=== PATIENT | female | born 1970 | race Caucasian/White ===

== ENCOUNTER 2017-08-23 12:07 | Emergency (ER) | payer BC ==
[~2017-08-23 12:07] MED LIST: AMO500 PO; AMOX-559 PO; CITA10SO7 PO; DOXY-179 PO; EMPA1TAB7; EXEN2PEN SQ; GLUCOPHAGE PO; HYDR-4228 PO; IBU200 PO; KET10 PO; LEV175 PO; LINA5TAB PO; LISI-368 PO; LOR7.5/325 PO; MET500 PO; METF-1 PO; METO-733 PO; METO25TA93 PO; NIT6.5 PO; NOR5/325 PO; OLM20 PO; ONDA4TAB PO; OXYC-865 PO; PANT40TA65 PO; PER PO; PRE10 PO; PROM25S PR; SUCR1TAB85 PO; TOBOD OP; TRADJENTA PO; [UNRECOGNIZED DRUG - CODE] PO
--- NOTE | 2017-08-23 12:19 | ER Report ---
History and Physical Time Seen By MD: 12:18 HPI/ROS CHIEF COMPLAINT: Ankle pain HISTORY OF PRESENT ILLNESS: This is a 47-year-old female who presents to the emergency department for right ankle pain patient states that about one week ago she was walking stepped on a pine cone her foot rolled medially and developed right ankle pain. Patient states that she's had continuous ankle pain since then. Patient also states she's had 2 previous ankle injuries. Patient also has lower tib-fib pain as well as right knee pain. The patient and her are also concerned about a DVT, the indication is very low at this point however they state that a relative there is just broke her ankle had a blood clot and " because of the clot". Patient denies chest pain or shortness of breath. No nausea or vomiting. No fevers, aches or chills. REVIEW OF SYSTEMS: Respiratory: No cough, no dyspnea. Cardiovascular: No chest pain, no palpitations. Gastrointestinal: No vomiting, no abdominal pain. Musculoskeletal: As above. Allergies: Coded Allergies: Sulfa (Sulfonamide Antibiotics) (Verified Allergy, Intermediate, RASH, ) Home Meds Reported Medications Empagliflozin/Metformin HCl (Synjardy 12.5-1,000 mg Tablet) 12.5 Mg-1,000 Mg Tablet 02/13/17 Levothyroxine Sodium (Levothyroxine Sodium) 300 Mcg Tablet, MCG PO DAILY 12/15/11 Past Medical/Surgical History The patient has a past medical and surgical history of CVA, asthma, arthritis, broken ankle, wears glasses, hard of hearing, diabetes, hypothyroidism, TIA, C- section, anxiety, depression, suicide attempt, cholecystectomy, tubal ligation, Reviewed Nurses Notes: Yes Hx Smoking: No Constitutional Vital Sign - Last 24 Hours 08/23/17 08/23/17 12:17 14:31 Temp 98.0 Pulse 73 79 Resp 16 B/P (MAP) 169/99 133/86 (102) Pulse Ox 95 94 O2 Delivery Room Air Physical Exam General Appearance: The patient is alert, has no immediate need for airway protection and no current signs of toxicity. Eyes: Pupils equal and round no injection. Respiratory: Chest is non tender, lungs are clear to auscultation. Cardiac: regular rate and rhythm. Gastrointestinal: Abdomen is soft and non tender, no masses, bowel sounds normal. Musculoskeletal: Neck: Neck is supple and non tender. Extremities right lateral malleolar pain with swelling. No medial malleolar pain. Distal tibia and fibular discomfort with palpation, no deformities, crepitus or step-offs. Right lateral and medial knee pain, no deformities, step- offs or crepitus noted. No swelling to the knee. No point tenderness to the calf. Skin: No rashes or lesions. DIFFERENTIAL DIAGNOSIS: After history and physical exam differential diagnosis was considered for contusion, ankle sprain, ankle fracture, DVT, tib-fib fracture and knee sprain. Medical Decision Making Data Points Laboratory Hematology Test 08/23/17 13:00 D-Dimer Quantitative (PE/DVT) 0.28 ug/ml (0-0.50) Chemistry Test 08/23/17 13:00 D-Dimer Quantitative (PE/DVT) 0.28 ug/ml (0-0.50) Coagulation Test 08/23/17 13:00 D-Dimer Quantitative (PE/DVT) 0.28 ug/ml EKG/Imaging Imaging Location: [facility] Patient: Dolores Chung : 1970 Visit[facility]Account:[id number] [facility] ANKLE 3 VIEW MIN RIGHT, KNEE 4 VIEW RIGHT, TIBIA FIBULA RIGHT History: Right leg pain. Ankle injury with swelling. Comparison study: None. Findings: Right knee: There is no fracture or dislocation involving the right knee. There is no joint effusion. Joint spaces are well preserved. Right tibia/fibula. There is no fracture involving the tibia or fibula. Right ankle: There is mild soft tissue swelling over the lateral malleolus but there is no finding of a fracture. The ankle mortise is intact. A well- corticated bony density inferior to the fibula is likely related to developmental variation or a prior injury. The base of the fifth metatarsal is intact. IMPRESSION: 1. Soft tissue swelling over the right lateral malleolus without findings of a fracture. 2. Normal images of the right knee and tibia and fibula. Report Dictated By: Timo Venegas MD at 08/23/2017 2:02 PM Report E-Signed By: Timo Venegas MD at 08/23/2017 2:05 PM WSN:GRADY Location: [facility] Patient: Dolores Chung : 1970 Visit/Account:[id number] Date of Sev: 08/23/2017 ANKLE 3 VIEW MIN RIGHT, KNEE 4 VIEW RIGHT, TIBIA FIBULA RIGHT History: Right leg pain. Ankle injury with swelling. Comparison study: None. Findings: Right knee: There is no fracture or dislocation involving the right knee. There is no joint effusion. Joint spaces are well preserved. Right tibia/fibula. There is no fracture involving the tibia or fibula. Right ankle: There is mild soft tissue swelling over the lateral malleolus but there is no finding of a fracture. The ankle mortise is intact. A well- corticated bony density inferior to the fibula is likely related to developmental variation or a prior injury. The base of the fifth metatarsal is intact. IMPRESSION: 1. Soft tissue swelling over the right lateral malleolus without findings of a fracture. 2. Normal images of the right knee and tibia and fibula. Report Dictated By: Timo Venegas MD at 08/23/2017 2:02 PM Report E-Signed By: Timo Venegas MD at 08/23/2017 2:05 PM N:AMICIVN Location: [facility] Patient: Dolores Chung : 1970 Visit/Account:[id number] Date of Sev: 08/23/2017 ANKLE 3 VIEW MIN RIGHT, KNEE 4 VIEW RIGHT, TIBIA FIBULA RIGHT History: Right leg pain. Ankle injury with swelling. Comparison study: None. Findings: Right knee: There is no fracture or dislocation involving the right knee. There is no joint effusion. Joint spaces are well preserved. Right tibia/fibula. There is no fracture involving the tibia or fibula. Right ankle: There is mild soft tissue swelling over the lateral malleolus but there is no finding of a fracture. The ankle mortise is intact. A well- corticated bony density inferior to the fibula is likely related to developmental variation or a prior injury. The base of the fifth metatarsal is intact. IMPRESSION: 1. Soft tissue swelling over the right lateral malleolus without findings of a fracture. 2. Normal images of the right knee and tibia and fibula. Report Dictated By: Timo Venegas MD at 08/23/2017 2:02 PM Report E-Signed By: Timo Venegas MD at 08/23/2017 2:05 PM WSN:GRADY ED Course/Re-evaluation ED Course The patient was met to room. A history and physical obtained. Potential diagnoses were considered. An x-ray of the right ankle, right tib-fib and right knee were obtained. No acute findings, no fractures of the right ankle, tib-fib or knee were identified. Given the patient's concern for a clot I did do a d- dimer which was negative. I did review the lab studies and x-ray results with the patient. Patient was placed in a walking boot for comfort. Patient has crutches at home. She was instructed to keep the bouton for comfort, follow up with [facility] for reevaluation if no improvement. Patient was instructed to take ibuprofen or Tylenol as needed. Keep the foot elevated and apply ice as needed. Patient expressed understanding and was discharged home. 08/23/2017 1:51:06 pm I did tell the patient and her that the d-dimer was negative, therefore I do not feel an ultrasound is warranted at this time. Patient and the are in agreement. I also told him that my preliminary read on the knee is negative as well as the tib-fib, the ankle was questionable. Waiting for the official read from radiology. Decision to Disposition Date: Aug 23, 2017 Decision to Disposition Time: 14:21 Depart Departure Latest Vital Signs Vital Signs Date Time Temp Pulse Resp B/P (MAP) Pulse Ox O2 Delivery O2 Flow Rate FiO2 08/23/17 14:31 79 133/86 (102) 94 08/23/17 12:17 98.0 16 Room Air Impression: Primary Impression: Right ankle sprain Additional Impression: Right knee pain Condition: Improved Disposition: HOME OR SELF-CARE Referrals: MARTINEZ MASON MD (PCP) [facility] Patient Instructions: Ankle Sprain (ED), Knee Pain (ED) Additional Instructions: Drink plenty of fluids. Get plenty of rest. Wear the boot for comfort. Follow up with Ortho in one week if no improvement. Take Tylenol as needed for pain. Return to the ED for any other concerns or worsening symptoms. Problem Qualifiers Primary Impression: Right ankle sprain Encounter type: initial encounter Involved ligament of ankle: unspecified ligament Qualified Codes: S93.401A - Sprain of unspecified ligament of right ankle, initial encounter Additional Impression: Right knee pain Chronicity: acute Qualified Codes: M25.561 - Pain in right knee MONY HERNANDES [employer] Aug 23, 2017 12:19
--- NOTE | 2017-08-23 14:08 | RADIOLOGY IMAGING REPORT ---
FACILITY: [facility] [place] PATIENT NAME: Dolores Chung : 1970 MR: [id number] V: [id number] EXAM DATE: ORDERING PHYSICIAN: MONY HERNANDES TECHNOLOGIST: Location: [facility] Patient: Dolores Chung : 1970 Visit/Account:[id number] Date of Sevice: 08/23/2017 ANKLE 3 VIEW MIN RIGHT, KNEE 4 VIEW RIGHT, TIBIA FIBULA RIGHT History: Right leg pain. Ankle injury with swelling. Comparison study: None. Findings: Right knee: There is no fracture or dislocation involving the right knee. There is no london nt effusion. Joint spaces are well preserved. Right tibia/fibula. There is no fracture involving the tibia or fibula. Right ankle: There is mild soft tissue swelling over the lateral malleolus but there is no finding of a fracture. The ankle mortise is intact. A well-corticated bony density inferior to the fibula is likely related to developmental variation or a prior injury. The base of the fifth metatarsal is int act. IMPRESSION: 1. Soft tissue swelling over the right lateral malleolus without findings of a fracture. 2. Normal images of the right knee and tibia and fibula. Report Dictated By: Timo Venegas MD at 08/23/2017 2:02 PM Report E-Signed By: Timo Venegas MD at 08/23/2017 2:05 PM WSN:AMICIVN
--- NOTE | 2017-08-23 14:09 | RADIOLOGY IMAGING REPORT ---
FACILITY: [facility] [place] PATIENT NAME: Dolores Chung : 1970 MR: [id number] V: [id number] EXAM DATE: ORDERING PHYSICIAN: MONY HERNANDES TECHNOLOGIST: Location: [facility] Patient: Dolores Chung : 1970 Visit/Account:[id number] Date of Sevice: 08/23/2017 ANKLE 3 VIEW MIN RIGHT, KNEE 4 VIEW RIGHT, TIBIA FIBULA RIGHT History: Right leg pain. Ankle injury with swelling. Comparison study: None. Findings: Right knee: There is no fracture or dislocation involving the right knee. There is no london nt effusion. Joint spaces are well preserved. Right tibia/fibula. There is no fracture involving the tibia or fibula. Right ankle: There is mild soft tissue swelling over the lateral malleolus but there is no finding of a fracture. The ankle mortise is intact. A well-corticated bony density inferior to the fibula is likely related to developmental variation or a prior injury. The base of the fifth metatarsal is int act. IMPRESSION: 1. Soft tissue swelling over the right lateral malleolus without findings of a fracture. 2. Normal images of the right knee and tibia and fibula. Report Dictated By: Timo Venegas MD at 08/23/2017 2:02 PM Report E-Signed By: Timo Venegas MD at 08/23/2017 2:05 PM WSN:AMICIVN
--- NOTE | 2017-08-23 14:09 | RADIOLOGY IMAGING REPORT ---
FACILITY: [facility] PATIENT NAME: Dolores Chung : 1970 MR: [id number] V: [id number] EXAM DATE: ORDERING PHYSICIAN: MONY HERNANDES TECHNOLOGIST: Location: [facility] [place] Patient: Dolores Chung : 1970 Visit/Account:[id number] Date of Sevice: 08/23/2017 ANKLE 3 VIEW MIN RIGHT, KNEE 4 VIEW RIGHT, TIBIA FIBULA RIGHT History: Right leg pain. Ankle injury with swelling. Comparison study: None. Findings: Right knee: There is no fracture or dislocation involving the right knee. There is no london nt effusion. Joint spaces are well preserved. Right tibia/fibula. There is no fracture involving the tibia or fibula. Right ankle: There is mild soft tissue swelling over the lateral malleolus but there is no finding of a fracture. The ankle mortise is intact. A well-corticated bony density inferior to the fibula is likely related to developmental variation or a prior injury. The base of the fifth metatarsal is int act. IMPRESSION: 1. Soft tissue swelling over the right lateral malleolus without findings of a fracture. 2. Normal images of the right knee and tibia and fibula. Report Dictated By: Timo Venegas MD at 08/23/2017 2:02 PM Report E-Signed By: Timo Venegas MD at 08/23/2017 2:05 PM WSN:AMICIVN
[2017-08-23 14:31] VITALS: BP 133/86
== END 2017-08-23 14:34 | disposition home or self-care (01) ==
LOC: ER 12:15
DX: S93.401A Sprain of unspecified ligament of right ankle, initial encounter (principal); M25.561 Pain in right knee
CPT/HCPCS: 36415; 73564; 85379; 99284

== ENCOUNTER → 2017-12-11 | Outpatient (CLI) | payer BC ==
--- NOTE | 2017-12-11 10:06 | RADIOLOGY IMAGING REPORT ---
FACILITY: [facility] [place] PATIENT NAME: Dolores Chung : 1970 MR: [id number] V: [id number] EXAM DATE: ORDERING PHYSICIAN: EVANGELISTA OLIVARES TECHNOLOGIST: Location: [facility] Patient: Dolores Chung : 1970 Visit/Account:[id number] Date of Sevice: 12/11/2017 TRANSVAGINAL NON-OB HISTORY: Abnormal vaginal bleeding TECHNIQUE: Transvaginal ultrasound pelvis. COMPARISON: CT abdomen and pelvis February 13, 2017 FINDINGS: Uterus: Retroverted; 7.6 cm length x 5.3 cm AP x 6.6 cm transverse. Myometrium: Mildly heterogeneous. There is a 1.6 x 1.8 x 1.6 cm slightly heterogeneous mass projecti ng from the posterior right side of the uterus likely representing a fibroid. Endometrium: Unremarkable; double thickness 5.9 mm. Cervix: Nabothian cysts. Ovaries: Right - 2.7 x 1.7 x 2 cm Left - 4.3 x 3.7 x 3.4 cm. There is a 3.3 x 3.4 x 3.6 cm heterogeneous complex mass in the left ovary possibly representing a he morrhagic cyst or endometrioma although other ovarian masses are not excluded. Blood flow is documented in each ovary by duplex Doppler ultrasound. Adnexa: Grossly unremarkable. Free pelvic fluid: None. IMPRESSION: There is a 3.3 x 3.4 x 3.6 and meter heterogeneous complex mass left ovary possibly represent hemorrh agic cyst or endometrioma although other ovarian masses are not excluded. Short-term interval follow -up recommended 1.8 cm fibroid posterior right-sided the uterus Nabothian cysts Report Dictated By: Kya Guevara MD at 12/11/2017 9:58 AM Report E-Signed By: Kya Guevara MD at 12/11/2017 10:02 AM WSN:GRADY
== END ==
LOC: US 01:32
PROVIDERS: ATTEND Physician Assistant Medical
DX: N88.8 Other specified noninflammatory disorders of cervix uteri (principal); D25.9 Leiomyoma of uterus, unspecified; N83.8 Other noninflammatory disorders of ovary, fallopian tube and broad ligament
CPT/HCPCS: 76830

== ENCOUNTER 2018-01-29 01:15 | Day surgery (SDC) | payer BC ==
[~2018-01-29] VITALS: Ht 157.5 cm; Wt 92.1 kg
[~2018-01-29 01:15] MED LIST changes: -EMPA1TAB7; +EMPA1TAB7 PO; +FERR325T24 PO; +LEVO200T50 PO; +POTA-23 PO
[2018-01-29] MEDS ORDERED: LIDOCAINE MPF 1% 5 ML VIAL ONE (10:56)
[2018-01-29] MEDS ORDERED: DEXAMETHASONE SOD 4 MG/ML VIAL ONE (10:56)
[2018-01-29] MEDS ORDERED: ONDANSETRON 4 MG/2 ML VIAL ONE (10:56)
[2018-01-29] MEDS ORDERED: METOCLOPRAMIDE 10 MG/2 ML SDV ONE (10:56)
[2018-01-29] MEDS ORDERED: PROPOFOL EMUL(*) 10MG/ML 20 ML 20 ML ONE (10:56)
[2018-01-29] MEDS ORDERED: fentaNYL CITR 100 MCG/2 ML AMP ONE ×3 (11:50→14:53)
[2018-01-29 12:20] LABS: PLATELET COUNT, AUTOMATED 327 K/uL (150-450)
[2018-01-29 12:30] VITALS: BP 151/100
[2018-01-29] MEDS ORDERED: ceFAZolin(*) 2GM/D5W 50ML 50 ML IVPB ONE (13:15)
[2018-01-29] MEDS ORDERED: MIDAZOLAM 2 MG/2 ML VIAL IVP PRN (13:15)
[2018-01-29] MEDS ORDERED: FAMOTIDINE 20 MG TAB PO ONE (13:15)
[2018-01-29] MEDS ORDERED: NORMOSOL R SOLN(*) 1000 ML BAG 1,000 ML IV PRN (13:15)
[2018-01-29] MEDS ORDERED: LIDOCAINE/SOD BICARB 8.4% SYR ID ONE (13:15)
[2018-01-29] MEDS ORDERED: KETOROLAC 30 MG/ML VIAL ONE (13:49)
--- NOTE | 2018-01-29 14:14 | Post Operative Note ---
Operative Note - CERTIFIED TUMOR REGISTRAR Operative Day Date: Jan 29, 2018 Time: 14:13 Physicians Surgeon: Claudette Anesthesia: General, [place] Diagnosis Pre-Op Diagnosis: Heavy and irregular bleeding Post-Op Diagnosis: Same Procedure Procedure(s): Dx hscope NovaSure ablation Specimen Removed:(Maybe N/A): None Fluids Fluids: UOP: 50cc Estimated Blood Loss: Minimal CINDY VILLAREAL MD Jan 29, 2018 14:14
[2018-01-29] MEDS ORDERED: LR(*) 1000 ML BAG 1,000 ML IV ONE (14:18)
[2018-01-29] MEDS ORDERED: METOCLOPRAMIDE 10 MG/2 ML SDV IVP PRN (14:20)
[2018-01-29] MEDS ORDERED: LOR5/325 PO (14:21)
[2018-01-29] MEDS ORDERED: IBUP800T37 PO (14:21)
[2018-01-29] MEDS ORDERED: APAP/HYDROCODONE 325/5 TAB ONE (14:53)
--- NOTE | 2018-01-29 14:57 | OPERATIVE REPORT 1 ---
EVENT DATE: January 29, 2018 SURGEON: Jigna Wilknis MD ANESTHESIOLOGIST: Blu Bone MD ANESTHESIA: General. PREOPERATIVE DIAGNOSIS Heavy and irregular bleeding. POSTOPERATIVE DIAGNOSIS Heavy and irregular bleeding. PROCEDURES PERFORMED 1. Diagnostic hysteroscopy. 2. NovaSure endometrial ablation. SPECIMENS REMOVED None. INTRAVENOUS FLUIDS See anesthesia record. URINE OUTPUT 50 mL ESTIMATED BLOOD LOSS Minimal. HYSTEROSCOPIC FLUIDS Total used: 750 mL with 75 mL deficit. NOVASURE SETTINGS Cavity length 5.5 cm, width 4.7 cm, power 142 farrar, time 62 seconds. INDICATIONS FOR PROCEDURE This patient is a 47-year-old G2, P2, who presented to clinic with heavy and irregular menstrual bleeding. 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 She had a benign endometrial biopsy. She was counseled on multiple options and elected to proceed with the above-said procedure for a minimally invasive option. Please see History and Physical for full details. DESCRIPTION OF PROCEDURE The patient was properly identified and taken to the operating room. She was placed under general anesthesia and placed in the dorsal lithotomy position. She was prepped and draped in the usual fashion for a vaginal procedure. A speculum was placed to visualize the cervix, which was multiparous and without lesion. The anterior lip of the cervix was grasped with an Allis clamp. Gentle traction was applied, and the cervix was serially dilated to 6 mm using Hegar dilators without difficulty. The uterus was known to be retroverted. The hysteroscope was then assembled and primed. The hysteroscope was introduced under direct visualization, confirming a normal-appearing endometrial cavity and bilateral tubal ostia. The hysteroscope was then removed, and the NovaSure endometrial ablation device was assembled. The cavity length was measured to be 5.5 cm. This was placed on the setting for the NovaSure. The device was then introduced into the uterus, and the array was deployed. The maximum width was 4.7 cm. The cervical collar was then advanced, and the cavity assessment was performed and passed. The radiofrequency ablation was then initiated, and a total of 62 seconds was utilized for the ablation time. The array was then retracted, and the entire NovaSure device was removed. The array did appear to have adequate burn throughout the entire array. The hysteroscope was then reintroduced into the endometrial cavity, and an adequate burn was observed. At this time, the hysteroscope was removed, as was the Allis clamp and speculum. The bladder was drained of 50 mL of clear yellow urine. The patient tolerated this procedure well and recovered in the Post-Anesthesia Care Unit. All sponge counts were correct at the end of this procedure. MAX
[2018-01-29 15:20] VITALS: BP 152/108
[2018-01-29 15:30] VITALS: BP 153/104
[2018-01-29 15:45] VITALS: BP 155/92
[2018-01-29 16:00] VITALS: BP 156/96
[2018-01-29 16:04] VITALS: BP 141/95
[2018-01-29] MEDS ORDERED: IBUPROFEN 800 MG TAB PO SCH (20:00)
== END 2018-01-29 15:20 | disposition home or self-care (01) ==
LOC: OR 01:15
PROVIDERS: ATTEND Obstetrics & Gynecology
DX: N92.6 Irregular menstruation, unspecified (principal); D25.1 Intramural leiomyoma of uterus
CPT/HCPCS: 36415; 58563; 84443; 84703; 85025; J1100; J1885; J2001; J2250; J2405; J2704; J2765; J3010; 82310; 82374; 82435; 82565; 82947; 84132; 84295; 84520; J0690

== ENCOUNTER → 2018-01-31 | Outpatient (CLI) | payer BC ==
[~2018-01-31] MED LIST changes: +IBUP800T37 PO; +LOR5/325 PO
--- NOTE | 2018-02-03 10:44 | RADIOLOGY IMAGING REPORT ---
FACILITY: PATIENT NAME: NATHANAEL LONDON : [id number] MR: [id number] V: [id number] EXAM DATE: ORDERING PHYSICIAN: CINDY VILLAREAL TECHNOLOGIST: Cee Snyder PROCEDURE:BILATERAL DIGITAL SCREENING MAMMOGRAM WITH CAD ASSISTED INTERPRETATION & 3D TOMOSYNTHESIS COMPARISON:None this is the patient's baseline mammogram. INDICATIONS:screening FINDINGS: There are scattered fibroglandular densities in both breasts. There is no evidence of malignant appearing mass, malignant appearing calcifications or other secondary sign of malignancy in either breast. DIAGNOSTIC CATEGORY 1--NEGATIVE. RECOMMENDATIONS: ROUTINE MAMMOGRAM AND CLINICAL EVALUATION. IMPRESSION: BIRADS 1: Negative. No significant abnormality is seen. Dictated by: Kya Guevara M.D. on 01/31/2018 at 14:39 Transcribed by: RAUL on 01/31/2018 at 14:48 Approved by: Kya Guevara M.D. on 02/03/2018 at 10:43 [facility]
== END ==
LOC: MAMO 01-10 03:59
PROVIDERS: ATTEND Obstetrics & Gynecology
DX: Z12.31 Encounter for screening mammogram for malignant neoplasm of breast (principal)
CPT/HCPCS: 77063; 77067

== ENCOUNTER 2018-05-21 07:34 | Emergency (ER) | payer BC ==
[~2018-05-21 07:34] MED LIST changes: +AMOX875T60 PO
--- NOTE | 2018-05-21 07:55 | ER Report ---
History and Physical Time Seen By MD: 07:45 Hx. of Stated Complaint: PATIENT REPORTS FEELING DIZZY. THIS STARTED OVERNIGHT. NO HX OF VERTIGO HPI/ROS CHIEF COMPLAINT: Viral type symptoms HISTORY OF PRESENT ILLNESS: Patient is a 40 center female comes emergency Department today with complaint that she's had a nonproductive cough fever generalized fatigue malaise and weakness just doesn't feel well subjective fevers at home started last night took some NyQuil for little better get some sleep This morning he still didn't feel well so she came to the emergency room. Cough is nonproductive no abdominal pain no chest pain nausea without vomiting no urinary complaints 8 last night no additional complaints noted. REVIEW OF SYSTEMS: Respiratory: Cough nonproductive no shortness of breath Cardiovascular: No chest pain, no palpitations. Gastrointestinal: No vomiting, no abdominal pain. Musculoskeletal: No back pain. Remainder of the 14 system rev: Yes Allergies: Coded Allergies: Sulfa (Sulfonamide Antibiotics) (Verified Allergy, Intermediate, RASH, 11/04/16) Home Meds Active Scripts Amoxicillin (AMOXICILLIN) 875 Mg Tablet, 1 TAB PO BID, #20 TAB 0 Refills Prov:CINDY VILLAREAL MD 02/20/18 Hydrocodone Bit/Acetaminophen (HYDROCODON-ACETAMINOPHEN 5-325) 1 Each Tablet, 1 EACH PO Q4-6H PRN for pain, #15 TAB 0 Refills Prov:CINDY VILLAREAL MD 01/29/18 Ibuprofen (IBUPROFEN) 800 Mg Tablet, 1 TAB PO Q8H PRN for pain, #30 TAB 0 Refills TAKE WITH FOOD EVERY 8 HOURS Prov:CINDY VILLAREAL MD 01/29/18 Reported Medications Potassium Chloride (KLOR-CON 10) 10 Meq Tablet.er, 10 MEQ PO QDAY 01/23/18 Ferrous Sulfate (IRON) 325 Mg Tablet, 325 MG PO 01/23/18 Levothyroxine Sodium (LEVOTHYROXINE SODIUM) 200 Mcg Tablet, 1 TAB PO QDAY 12/13/17 Empagliflozin/Metformin HCl (Synjardy 12.5-1,000 mg Tablet) 12.5 Mg-1,000 Mg Tablet, 1 TAB PO QDAY 02/13/17 Reviewed Nurses Notes: Yes Old Medical Records Reviewed: Yes Hx Smoking: Yes Smoking Status: Former Smoker Exposure to Second Hand Smoke?: Yes Hx Substance Use Disorder: No Hx Alcohol Use: No Constitutional Vital Sign - Last 24 Hours 4/3/19 07:37 Temp 100.6 Pulse 116 Resp 20 B/P (MAP) 150/100 Pulse Ox 91 O2 Delivery Room Air Physical Exam General Appearance: The patient is alert, has no immediate need for airway protection and no current signs of toxicity. [ ] Eyes: Pupils equal and round no injection. Respiratory: Chest is non tender, lungs are clear to auscultation. Cardiac: regular rate and rhythm [ ] Gastrointestinal: Abdomen is soft and non tender, no masses, bowel sounds normal. Musculoskeletal: Neck: Neck is supple and non tender. Extremities have full range of motion and are non tender. Skin: No rashes or lesions. [ ] DIFFERENTIAL DIAGNOSIS: After history and physical exam differential diagnosis was considered for influenza viral upper respiratory viral syndrome viral infection pneumonia bronchitis Medical Decision Making Data Points Laboratory Hematology Test 05/21/18 07:46 Influenza Virus Type A (PCR) Positive (NEGATIVE) Influenza Virus Type B (PCR) Negative (NEGATIVE) Chemistry Test 05/21/18 07:46 Influenza Virus Type A (PCR) Positive (NEGATIVE) Influenza Virus Type B (PCR) Negative (NEGATIVE) ED Course/Re-evaluation ED Course ED course medical decision making 47-year-old female with vague nonspecific influenza type symptoms influenza A positive we'll advise her to take [id number] medications rest follow-up appropriately with primary care Decision to Disposition Date: May 21, 2018 Decision to Disposition Time: 08:27 Depart Departure Latest Vital Signs Vital Signs Date Time Temp Pulse Resp B/P (MAP) Pulse Ox O2 Delivery O2 Flow Rate FiO2 05/21/18 07:37 100.6 116 20 150/100 91 Room Air Impression: Primary Impression: Influenza A Condition: Improved Disposition: HOME OR SELF-CARE Referrals: CINDY VILLAREAL MD (PCP) 5 Days Patient Instructions: Influenza (ED) SCOTT JAMES MD May 21, 2018 07:55
[2018-05-21 08:30] VITALS: BP 139/87
== END 2018-05-21 08:40 | disposition home or self-care (01) ==
LOC: ER 07:38
DX: J09.X2 Influenza due to identified novel influenza A virus with other respiratory manifestations (principal)
CPT/HCPCS: 87502; 99282

== ENCOUNTER 2018-09-13 20:49 | Emergency (ER) | payer OTHER, BC ==
--- NOTE | 2018-09-13 20:51 | ER Report ---
History and Physical Allergies: Coded Allergies: Sulfa (Sulfonamide Antibiotics) (Verified Allergy, Intermediate, RASH, 09/13/18) Home Meds Reported Medications Semaglutide (Ozempic) 1 Mg/0.75 Ml (2 Mg/1.5 Ml) Pen.injctr, 1 MG IM QWEEK 09/13/18 Levothyroxine Sodium (LEVOTHYROXINE SODIUM) 200 Mcg Tablet, 1 TAB PO QDAY 12/13/17 Empagliflozin/Metformin HCl (Synjardy 12.5-1,000 mg Tablet) 12.5 Mg-1,000 Mg T ablet, 1 TAB PO QDAY 02/13/17 Discontinued Reported Medications Potassium Chloride (KLOR-CON 10) 10 Meq Tablet.er, 10 MEQ PO QDAY 01/23/18 Ferrous Sulfate (IRON) 325 Mg Tablet, 325 MG PO 01/23/18 Discontinued Scripts Amoxicillin (AMOXICILLIN) 875 Mg Tablet, 1 TAB PO BID, #20 TAB 0 Refills Prov:CINDY VILLAREAL MD 02/20/18 Hydrocodone Bit/Acetaminophen (HYDROCODON-ACETAMINOPHEN 5-325) 1 Each Tablet, 1 EACH PO Q4-6H PRN for pain, #15 TAB 0 Refills Prov:CINDY VILLAREAL MD 01/29/18 Ibuprofen (IBUPROFEN) 800 Mg Tablet, 1 TAB PO Q8H PRN for pain, #30 TAB 0 Refills TAKE WITH FOOD EVERY 8 HOURS Prov:CINDY VILLAREAL MD 01/29/18 Reviewed Nurses Notes: Yes Old Medical Records Reviewed: Yes Hx Smoking: Yes Smoking Status: Former Smoker Exposure to Second Hand Smoke?: Yes Hx Substance Use Disorder: No Hx Alcohol Use: No Constitutional Vital Sign - Last 24 Hours 09/13/18 20:57 Temp 98.4 Pulse 70 Resp 14 B/P (MAP) 147/106 Pulse Ox 95 O2 Delivery Room Air Depart Departure Latest Vital Signs Vital Signs Date Time Temp Pulse Resp B/P (MAP) Pulse Ox O2 Delivery O2 Flow Rate FiO2 09/13/18 20:57 98.4 70 14 147/106 95 Room Air Condition: Stable Disposition: HOME OR SELF-CARE Referrals: MARTINEZ MASON MD (PCP) MARIO SPRING DO Sep 13, 2018 20:51
[2018-09-13] MEDS ORDERED: SEMA1PEN IM (21:03)
--- NOTE | 2018-09-13 21:09 | ER Report ---
History and Physical Time Seen By MD: 21:06 Hx. of Stated Complaint: PT REPORTS ROLLING RIGHT ANKLE AND FALLING TO RIGHT SIDE. PT COMPLAINT OF PAIN IN RIGHT ANKLE, KNEE, AND WRIST. HPI/ROS CHIEF COMPLAINT: Fall HISTORY OF PRESENT ILLNESS: This is a 48-year-old female who presents to the emergency department for a fall. Patient states she was at work around 6:00 this evening when she fell off a step stool, she states her right foot rolled medially, causing pain to the right lateral malleolus, she also fell down landing with her right hand outstretched, causing pain to the right wrist. She denies hitting her head, no loss of consciousness, no other injuries. No chest pain or shortness breath. REVIEW OF SYSTEMS: Respiratory: No cough, no dyspnea. Cardiovascular: No chest pain, no palpitations. Gastrointestinal: No vomiting, no abdominal pain. Musculoskeletal: As above. Allergies: Coded Allergies: Sulfa (Sulfonamide Antibiotics) (Verified Allergy, Intermediate, RASH, 09/13/18) Home Meds Reported Medications Semaglutide (Ozempic) 1 Mg/0.75 Ml (2 Mg/1.5 Ml) Pen.injctr, 1 MG IM QWEEK 09/13/18 Levothyroxine Sodium (LEVOTHYROXINE SODIUM) 200 Mcg Tablet, 1 TAB PO QDAY 12/13/17 Empagliflozin/Metformin HCl (Synjardy 12.5-1,000 mg Tablet) 12.5 Mg-1,000 Mg Tablet, 1 TAB PO QDAY 02/13/17 Discontinued Reported Medications Potassium Chloride (KLOR-CON 10) 10 Meq Tablet.er, 10 MEQ PO QDAY 01/23/18 Ferrous Sulfate (IRON) 325 Mg Tablet, 325 MG PO 01/23/18 Discontinued Scripts Amoxicillin (AMOXICILLIN) 875 Mg Tablet, 1 TAB PO BID, #20 TAB 0 Refills Prov:CINDY VILLAREAL MD 02/20/18 Hydrocodone Bit/Acetaminophen (HYDROCODON-ACETAMINOPHEN 5-325) 1 Each Tablet, 1 EACH PO Q4-6H PRN for pain, #15 TAB 0 Refills Prov:CINDY VILLAREAL MD 01/29/18 Ibuprofen (IBUPROFEN) 800 Mg Tablet, 1 TAB PO Q8H PRN for pain, #30 TAB 0 Refills TAKE WITH FOOD EVERY 8 HOURS Prov:CINDY VILLAREAL MD 01/29/18 Past Medical/Surgical History The patient has a past medical and surgical history of TIA, CVA, possible heart murmur, asthma as a child, broken right ankle as a child, wears glasses, "macular edema", hard of hearing, type II diabetes, hypothyroidism, eczema C- section, cholecystectomy, depression, remote history of suicide attempt, cervical ablation, tubal ligation, tonsillectomy. Reviewed Nurses Notes: Yes Hx Smoking: Yes Smoking Status: Former Smoker Exposure to Second Hand Smoke?: Yes Hx Substance Use Disorder: No Hx Alcohol Use: No Constitutional Vital Sign - Last 24 Hours 09/13/18 09/13/18 09/13/18 09/13/18 20:55 20:57 21:00 21:04 Temp 98.4 Pulse 70 72 Resp 14 B/P (MAP) 147/106 (120) 147/106 163/106 (125) Pulse Ox 95 94 O2 Delivery Room Air 09/13/18 09/13/18 09/13/18 09/13/18 21:19 21:30 21:34 21:49 Pulse 68 67 70 B/P (MAP) 147/107 (120) Pulse Ox 94 96 94 09/13/18 09/13/18 09/13/18 09/13/18 22:00 22:04 22:30 22:34 Pulse 58 65 B/P (MAP) 142/90 (107) 149/93 (111) Pulse Ox 92 93 09/13/18 09/13/18 22:45 23:00 Pulse 73 67 B/P (MAP) 136/99 (111) Pulse Ox 93 92 Physical Exam General Appearance: The patient is alert, has no immediate need for airway protection and no current signs of toxicity. Eyes: Pupils equal and round no injection. Respiratory: Chest is non tender, lungs are clear to auscultation. Cardiac: regular rate and rhythm. Gastrointestinal: Abdomen is soft and non tender, no masses, bowel sounds normal. Musculoskeletal: Neck: Neck is supple and non tender. Extremities pain to the right lateral malleolus with pain, small amount of swelling identified, no crepitus. Small amount of swelling to the arch of the foot, no crepitus or deformities.Examination of the Right hand reveals no acute deformity. The patient is able to give a thumbs up sign, is able to make an okay sign, and is able to AB duct the fingers. Sensation is intact over the dorsal 1st web space, the volar aspect of the 2nd finger, and the volar aspect of the 5th finger. Capillary refill is brisk. There is pain over the lunate. Skin: No rashes or lesions. DIFFERENTIAL DIAGNOSIS: After history and physical exam differential diagnosis was considered for contusion, fracture, subluxation, sprain. Medical Decision Making EKG/Imaging Imaging PATIENT NAME: Dolores Chung : 1970 MR: [id number] V: [id number] EXAM DATE: ORDERING PHYSICIAN: MISHA HERNANDES TECHNOLOGIST: Location: [facility] Patient: Dolores Chung : 1970 Visit/Account:[id number] Date of Sevice: 09/13/2018 ANKLE 3 VIEW MIN RIGHT XR WRIST 3 OR MORE VIEWS RT Indication: Trauma. Right ankle and right wrist pain. Comparison: Right ankle radiographs dated 08/23/2017. Right wrist radiographs dated 07/22/2006. Findings: Right ankle: 3 views. No evidence of acute fracture, dislocation, or radiopaque foreign body. Small enthesophytes at the insertion of the Achilles tendon. Stable chronic posttraumatic changes adjacent to the medial and lateral malleoli. Stable chronic deformity of the superior aspect of the navicular bone. Otherwise normal mineralization, joint spaces, and alignment. Right wrist: 3 views. No evidence of acute fracture, dislocation, or radiopaque foreign body. Stable small bone islands in the first and fourth metacarpal heads. Otherwise normal mineralization, and joint spaces, and alignment. Impression: 1. No acute osseous abnormality of the right ankle or right wrist. 2. Stable chronic findings compared to prior exams. Report Dictated By: Misha Chow MD at 09/13/2018 10:33 PM Report E-Signed By: Misha Chow MD at 09/13/2018 10:38 PM WSN:[id number] PATIENT NAME: Dolores Chung : 1970 MR: [id number] V: [id number] EXAM DATE: [id number] ORDERING PHYSICIAN: MISHA HERNANDES TECHNOLOGIST: Location: [facility] Patient: Dolores Chung : 1970 Visit/Account:[id number] Date of : 09/13/2018 ANKLE 3 VIEW MIN RIGHT XR WRIST 3 OR MORE VIEWS RT Indication: Trauma. Right ankle and right wrist pain. Comparison: Right ankle radiographs dated 08/23/2017. Right wrist radiographs dated 07/22/2006. Findings: Right ankle: 3 views. No evidence of acute fracture, dislocation, or radiopaque foreign body. Small enthesophytes at the insertion of the Achilles tendon. Stable chronic posttraumatic changes adjacent to the medial and lateral malleoli. Stable chronic deformity of the superior aspect of the navicular bone. Otherwise normal mineralization, joint spaces, and alignment. Right wrist: 3 views. No evidence of acute fracture, dislocation, or radiopaque foreign body. Stable small bone islands in the first and fourth metacarpal heads. Otherwise normal mineralization, and joint spaces, and alignment. Impression: 1. No acute osseous abnormality of the right ankle or right wrist. 2. Stable chronic findings compared to prior exams. Report Dictated By: Misha Chow MD at 09/13/2018 10:33 PM Report E-Signed By: Misha Chow MD at 09/13/2018 10:38 PM WSN:[id number] ED Course/Re-evaluation ED Course The patient was admitted to a room. A history and physical obtained. Differential diagnoses were considered. An x-ray of the right wrist and right ankle were obtained and negative for any acute osseous have the mallet. I did review the results with the patient. She was placed in a walking boot and a universal wrist splint. Instructed to take Tylenol and/or ibuprofen as needed for pain. She twisted understanding was discharged home. Decision to Disposition Date: Sep 13, 2018 Decision to Disposition Time: 22:49 Depart Departure Latest Vital Signs Vital Signs Date Time Temp Pulse Resp B/P (MAP) Pulse Ox O2 Delivery O2 Flow Rate FiO2 09/13/18 23:00 67 136/99 (111) 92 09/13/18 20:57 98.4 14 Room Air Impression: Primary Impression: Right ankle sprain Additional Impression: Contusion of right hand Condition: Improved Disposition: HOME OR SELF-CARE Referrals: MARTINEZ MASON MD (PCP) ELAINE ANDERSON MD Patient Instructions: Ankle Sprain (ED), Wrist Injury (ED) Additional Instructions: Wear the walking boot as needed for pain. Use the universal wrist splint as needed, please remove it from the splint every couple of hours and perform range of motion exercises. Can take ibuprofen or Tylenol as needed for pain. Keep the foot elevated whenever possible, to the level of the heart. Drink plenty of water. Get plenty of rest. Return to the ER for any other concerns or worsening symptoms. If the pain is persistent please follow-up with [facility] for reevaluation. Problem Qualifiers Primary Impression: Right ankle sprain Encounter type: initial encounter Involved ligament of ankle: unspecified ligament Qualified Codes: S93.401A - Sprain of unspecified ligament of right ankle, initial encounter Additional Impression: Contusion of right hand Encounter type: initial encounter Qualified Codes: S60.221A - Contusion of right hand, initial encounter MISHA HERNANDES [employer] Sep 13, 2018 21:09
--- NOTE | 2018-09-13 22:46 | RADIOLOGY IMAGING REPORT ---
[place] [facility] [place] Dolores Chung : 1970 MR: [id number] V: [id number] EXAM DATE: ORDERING PHYSICIAN: MONY HERNANDES TECHNOLOGIST: Location: [facility] Patient: Dolores Chung : 1970 Visit/Account:[id number] Date of Sevice: 09/13/2018 ANKLE 3 VIEW MIN RIGHT XR WRIST 3 OR MORE VIEWS RT Indication: Trauma. Right ankle and right wrist pain. Comparison: Right ankle radiographs dated 08/23/2017. Right wrist radiographs dated 07/22/2006. Findings: Right ankle: 3 views. No evidence of acute fracture, dislocation, or radiopaque foreign body. Small e nthesophytes at the insertion of the Achilles tendon. Stable chronic posttraumatic changes adjacent t o the medial and lateral malleoli. Stable chronic deformity of the superior aspect of the navicular b one. Otherwise normal mineralization, joint spaces, and alignment. Right wrist: 3 views. No evidence of acute fracture, dislocation, or radiopaque foreign body. Stable small bone islands in the first and fourth metacarpal heads. Otherwise normal mineralization, and [place] nt spaces, and alignment. Impression: 1. No acute osseous abnormality of the right ankle or right wrist. 2. Stable chronic findings compared to prior exams. Report Dictated By: Mony Chow MD at 09/13/2018 10:33 PM Report E-Signed By: Mony Chow MD at 09/13/2018 10:38 PM WSN:[id number]
--- NOTE | 2018-09-13 22:47 | RADIOLOGY IMAGING REPORT ---
[place] [facility] [place] NAME: Dolores Chung : 1970 MR: [id number] V: [id number] EXAM DATE: ORDERING PHYSICIAN: MONY HERNANDES TECHNOLOGIST: Location: [facility] [place] Patient: Dolores Chung : 1970 Visit/Account:[id number] Date of Sevice: 09/13/2018 ANKLE 3 VIEW MIN RIGHT XR WRIST 3 OR MORE VIEWS RT Indication: Trauma. Right ankle and right wrist pain. Comparison: Right ankle radiographs dated 08/23/2017. Right wrist radiographs dated 07/22/2006. Findings: Right ankle: 3 views. No evidence of acute fracture, dislocation, or radiopaque foreign body. Small e nthesophytes at the insertion of the Achilles tendon. Stable chronic posttraumatic changes adjacent t o the medial and lateral malleoli. Stable chronic deformity of the superior aspect of the navicular b one. Otherwise normal mineralization, joint spaces, and alignment. Right wrist: 3 views. No evidence of acute fracture, dislocation, or radiopaque foreign body. Stable small bone islands in the first and fourth metacarpal heads. Otherwise normal mineralization, and l[place] nt spaces, and alignment. Impression: 1. No acute osseous abnormality of the right ankle or right wrist. 2. Stable chronic findings compared to prior exams. Report Dictated By: Mony Chow MD at 09/13/2018 10:33 PM Report E-Signed By: Mony Chow MD at 09/13/2018 10:38 PM WSN:[id number]
[2018-09-13 23:00] VITALS: BP 136/99
== END 2018-09-13 23:03 | disposition home or self-care (01) ==
LOC: ER 20:53
DX: S93.401A Sprain of unspecified ligament of right ankle, initial encounter (principal); S60.221A Contusion of right hand, initial encounter
CPT/HCPCS: 73110; 73610; 99284; L3763; L3908